=== PATIENT | male | born 1955 | race Asian ===

== ENCOUNTER 2022-02-06 09:37 | Emergency (ER) | payer MEDICARE ==
[~2022-02-06] VITALS: Ht 170.2 cm; Wt 75.0 kg
[~2022-02-06 09:37] MED LIST: PANT-31 PO; SITA1TBM4 PO
[2022-02-06] MEDS ORDERED: LOSA-382 PO (09:40)
[2022-02-06] MEDS ORDERED: TraMADol HCL 50 MG TABLET PO ONE (11:00)
[2022-02-06 13:56] VITALS: BP 152/85
[2022-02-06 14:46] LABS: GLUCOMETER DEV NAME(LOC) ERT.5; GLUCOSE,POINT OF CARE 170 MG/DL (70-110)
== END 2022-02-06 14:40 | disposition short-term general hospital (02) ==
LOC: EMS 09:40
DX: S22.089A Unspecified fracture of T11-T12 vertebra, initial encounter for closed fracture (principal); S32.049A Unspecified fracture of fourth lumbar vertebra, initial encounter for closed fracture; S32.029A Unspecified fracture of second lumbar vertebra, initial encounter for closed fracture; M25.551 Pain in right hip; E11.9 Type 2 diabetes mellitus without complications; I10 Essential (primary) hypertension; W11.XXXA Fall on and from ladder, initial encounter; Y93.89 Activity, other specified; Y92.89 Other specified places as the place of occurrence of the external cause; Y99.8 Other external cause status
CPT/HCPCS: 72128; 72131; 73502; 82962; 99285; 99291